=== PATIENT | male | born 1970 | race Caucasian/White ===

== ENCOUNTER 2021-05-23 04:33 | Emergency (ER) | payer OTHER ==
[~2021-05-23] VITALS: Ht 172.7 cm; Wt 90.9 kg
--- NOTE | 2021-05-23 04:40 | NUR ---
PT ASHUTOSH FROM HIS CAR, EMS STATES THAT PT CALLED THE [facility] PT FELL ASLEEP IN HIS CAR AND WHEN HE WOKE UP HE HAD EXCRUTIATING BACK PAIN, PT CRYING LOUDLY AND YELLING AT STAFF AND NOT GIVING PROPER SPELLING OF NAME, PT REFUSED TO CHANGE INTO A GOWN, PT REFUSED TYLENOL AND MOTRIN FROM EMS SAYING "IT WONT DO SHIT", PT LAYING ON HIS SIDE, FATHER AT BEDSIDE
--- NOTE | 2021-05-23 04:41 | NUR ---
PT CRYING LOUDLY AT ALL TIMES, PT UNCONSOLABLE
[2021-05-23] MEDS: PLEASE ENTER ALLERGIES MC SCH ×2 (05:25→08:11)
[2021-05-23] MEDS ORDERED: DIAZEPAM 5 MG/ML, 2ML ONE ×2 (05:26→08:13)
[2021-05-23] MEDS ORDERED: KETOROLAC 30 MG/1 ML ONE (05:26)
[2021-05-23] MEDS ORDERED: DIAZEPAM 5 MG/ML, 10ML VIAL IM ONE (05:30)
[2021-05-23] MEDS ORDERED: KETOROLAC 30 MG/1 ML IM ONE (05:30)
[2021-05-23] MEDS ORDERED: DIAZEPAM 5 MG/ML, 2ML IM ONE (06:00)
--- NOTE | 2021-05-23 06:33 | NUR ---
PT NOW LAYING ON STOMACH, SLEEPING PEACEFULLY, NO LONGER CRYING
--- NOTE | 2021-05-23 06:47 | NUR ---
REPORT FROM TONYA MADRIGAL
--- NOTE | 2021-05-23 06:57 | NUR ---
PT RESTING ON GURNEY, RESPIRATIONS EVEN AND UNLABORED. PT STATES HE IS UNABLE TO VOID AT THIS TIME FOR A URINE SAMPLE. PT CONNECTED TO MONITORS, NADN/VSS. CALL LIGHT WITHIN REACH, BED IN LOWEST POSITION, BED RAILS UP X2
--- NOTE | 2021-05-23 07:55 | NUR ---
PT ASKED TO ROAD TEST, PT REFUSED & YELLED AT THIS RN & ANNAMARIE, TASTE TESTER. PT BACK ON [facility], BED RAILS UP X2, BED IN LOWEST POSITION, ERP AWARE
[2021-05-23] MEDS ORDERED: HYDROmorphone 2 MG/ML, 1ML ONE (07:57)
[2021-05-23] MEDS ORDERED: HYDROmorphone 1 MG/ML, 1ML INJ IM ONE (08:00)
[2021-05-23] MEDS ORDERED: DIAZEPAM 5 MG TABLET ONE (08:09)
--- NOTE | 2021-05-23 08:20 | NUR ---
PT MEDICATED PER EMAR, NADN/VSS.
--- NOTE | 2021-05-23 09:08 | NUR ---
PT LAYING ON [facility]. PT STATES HE IS UNABLE TO GET UP FOR URINE SAMPLE OR ROAD TEST. PT STATES HE IS "SWIMMING IN MY HEAD"
--- NOTE | 2021-05-23 09:34 | NUR ---
PT PROVIDED WATER FOR URINE SAMPLE. ERP TOLD PT WE GET A URINE SAMPLE OR HE WILL NEED TO BE STRAIGHT CATH'D FOR A SAMPLE, PT STATED "GIVE ME A FUCKING BREAK" ERP AWARE
--- NOTE | 2021-05-23 10:04 | NUR ---
PT ABLE TO PROVIDE URINE FOR URINE SAMPLE. URINE SAMPLE SENT TO LAB. ERP AWARE
[2021-05-23 10:06] LABS: MICROSCOPIC INDICATED
--- NOTE | 2021-05-23 10:42 | NUR ---
PT TO CT
--- NOTE | 2021-05-23 11:00 | NUR ---
PT BACK FROM CT, RESTING ON [employer]. NADN/VSS. CALL LIGHT WITHIN REACH
[2021-05-23 11:21] VITALS: BP 136/88
--- NOTE | 2021-05-23 11:40 | NUR ---
ERP AT FOR RECHECK
--- NOTE | 2021-05-23 12:02 | NUR ---
Patient given discharge instructions and RX, they have confirmed that they understand the instructions. Patient ambulatory with steady gait.
== END 2021-05-23 12:04 | disposition home or self-care (01) ==
LOC: ED 04:45 → EDBD 04:45 → ED 12:04
DX: N13.2 Hydronephrosis with renal and ureteral calculous obstruction (principal); R31.9 Hematuria, unspecified; F17.200 Nicotine dependence, unspecified, uncomplicated
CPT/HCPCS: 72110; 74176; 81001; 96372; 99285; J1170; J1885; J3360